=== PATIENT | male | born 1995 | race African-American/Black ===

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

== ENCOUNTER 2017-07-03 18:55 | Emergency (ER) | payer MEDICAID ==
[~2017-07-03] VITALS: Ht 182.9 cm; Wt 77.0 kg
[2017-07-03 18:59] VITALS: BP 116/95
== END 2017-07-03 22:10 | disposition home or self-care (01) ==
LOC: ER 19:20
DX: M25.551 Pain in right hip (principal); J45.909 Unspecified asthma, uncomplicated
CPT/HCPCS: 99282

== ENCOUNTER 2017-08-10 08:32 | Emergency (ER) | payer MEDICAID, OTHER ==
[~2017-08-10] VITALS: Ht 182.9 cm; Wt 76.0 kg
[2017-08-10] MEDS ORDERED: IBUPROFEN 600MG TABLET PO ONE (10:15)
[2017-08-10 11:20] VITALS: BP 107/56
== END 2017-08-10 11:21 | disposition home or self-care (01) ==
LOC: ER 08:32
DX: M25.562 Pain in left knee (principal); J45.909 Unspecified asthma, uncomplicated
CPT/HCPCS: 73562; 99284

== ENCOUNTER 2019-02-21 17:46 | Emergency (ER) | payer MEDICAID ==
[~2019-02-21] VITALS: Ht 182.9 cm; Wt 87.0 kg
[2019-02-21] MEDS ORDERED: SODIUM CHLORIDE 0.9% 1,000 ML IV ONE ×2 (19:00→20:39)
[2019-02-21] MEDS ORDERED: MORPHINE SULFATE 4 MG/ML CPJ (NOT FOR IM USE) IV STA (19:00)
[2019-02-21] MEDS ORDERED: ONDANSETRON HCL 4MG/2ML INJ IV STA (19:00)
[2019-02-21 19:24] LABS: BASOPHILS % 0.6 % (0.0-2.0); EOSINOPHILS % 1.5 % (0.0-5.0); HEMATOCRIT. 46.3 % (42.0-52.0); HEMOGLOBIN. 15.8 g/dL (14.0-18.0); LYMPHOCYTES % 41.9 % (20.0-50.0); MEAN CORPUSCULAR VOLUME 90.5 fL (80.0-94.0); MEAN PLATELET VOLUME 8.5 fl (7.4-10.4); MONOCYTES % 7.5 % (2.0-8.0); NEUTROPHILS % 48.5 % (40.0-76.0); PLATELET 189 x1000/uL (130-400); RED BLOOD CELL COUNT 5.12 mill/uL (4.7-6.1)
[2019-02-21 19:37] LABS: ETHANOL BLOOD < 10 mg/dL
[2019-02-21 19:42] LABS: CREATINE KINASE 114 IU/L (39-308)
[2019-02-21 19:45] LABS: CREATINE KINASE MB FRACTION < 1.0 ng/mL (0.5-3.6)
[2019-02-21 19:49] LABS: CHLORIDE 107 mEq/L (98-107)
[2019-02-21 21:53] LABS: CLARITY URINE CLEAR (CLEAR); COLOR URINE DARK YELLOW (YELLOW); KETONES URINE TRACE (NEGATIVE); LEUKOCYTE ESTERASE URINE NEGATIVE (NEGATIVE); NITRITE URINE NEGATIVE (NEGATIVE); OCCULT BLOOD URINE NEGATIVE (NEGATIVE); PH URINE 6.5 (4.5-8.0); PROTEIN URINE NEGATIVE (NEGATIVE); SPECIFIC GRAVITY URINE 1.025 (1.005-1.030)
[2019-02-21 22:09] LABS: *AMPHETAMINES SCREEN URINE NEGATIVE (NEGATIVE); *BARBITURATES SCREEN URINE NEGATIVE (NEGATIVE); *BENZODIAZEPINES SCREEN URINE NEGATIVE (NEGATIVE); *COCAINE SCREEN URINE NEGATIVE (NEGATIVE); METHADONE URINE SCREEN NEGATIVE (NEGATIVE)
[2019-02-21 22:10] LABS: CANNABINOID URINE SCREEN NEGATIVE (NEGATIVE); OPIATES URINE SCREEN PRESUMTIVE POSITIVE (NEGATIVE); PHENCYCLIDINE URINE SCREEN NEGATIVE (NEGATIVE)
[2019-02-21 23:00] VITALS: BP 125/61
== END 2019-02-21 23:00 | disposition home or self-care (01) ==
LOC: ER 17:46
DX: E86.0 Dehydration (principal); R51 Headache; R53.1 Weakness
CPT/HCPCS: 36415; 70450; 80053; 80305; 80320; 81003; 82550; 82553; 83690; 84443; 84484; 85025; 93005; 96374; 96375; 99284; J2270; J2405; J7030; G0480